=== PATIENT | male | born 1970 | race African-American/Black ===

== ENCOUNTER 2017-11-08 06:43 | Day surgery (SDC) | payer OTHER ==
[~2017-11-08 06:43] MED LIST: DEXAMETHASONE SOD PHOSPHATE 10 MG/ML 1 ML VIAL IV ONE; HEPARIN SODIUM,PORCINE 5,000 UNIT/ML 1 ML VIAL SQ ONE; LACTATED RINGERS 1,000 ML IV SCH; MIDAZOLAM 2 MG/2 ML VIAL IV PRN; MORPHINE SULFATE 4 MG/ML SYRINGE IV PRN; ONDANSETRON 4 MG/2 ML VIAL IVP ONE; Pre Op ABX Message 1 EACH MISC MISCELLANE ONE; SCOPOLAMINE 1.5MG/72HR PATCH TRANSDERM ONE
[2017-11-08 07:21] VITALS: TEMP 98.7
[2017-11-08 07:33] LABS: Glucose,Whole Blood 81 mg/dL (75-99)
[2017-11-08] MEDS ORDERED: LIDOCAINE 1% 20 ML VIAL (10MG/ML) FOR IV START INTRADERMA ONE (07:33)
[2017-11-08] MEDS ORDERED: BUPIVACAINE-EPI 0.5%-1:200,000 10 ML VIAL SQ ONE ×2 (08:06)
[2017-11-08] MEDS ORDERED: MIDAZOLAM 2 MG/2 ML VIAL ONE (08:11)
[2017-11-08] MEDS ORDERED: KETAMINE 10 MG/ML 20 ML VIAL ONE (08:11)
[2017-11-08] MEDS ORDERED: LIDOCAINE 1% INJ 10MG/ML (20 ML MDV) ONE (08:11)
[2017-11-08] MEDS ORDERED: fentaNYL (PF) 50 MCG/ML 2 ML AMP ONE (08:11)
[2017-11-08] MEDS ORDERED: PROPOFOL 10 MG/ML 20 ML VIAL IV ONE (08:11)
--- NOTE | 2017-11-08 08:15 | P.GSHP ---
History of Present Illness H&P Date: 11/08/17 Chief Complaint: Left shoulder lipoma Is a 47-year-old male who presents today for excision of left shoulder lipoma. Patient has developed a 5 cm mass over his left shoulder. Past Medical History Past Medical History: Diabetes Mellitus Additional Past Medical History / Comment(s): DIET CONTROLLED DIABETIC History of Any Multi-Drug Resistant Organisms: None Reported Past Surgical History: Orthopedic Surgery Additional Past Surgical History / Comment(s): left knee surgery, skin grafts Past Anesthesia/Blood Transfusion Reactions: No Reported Reaction Smoking Status: Current every day smoker - Past Family History Sister(s) Family Medical History: Cancer Additional Family Medical History / Comment(s): BREAST Medications and Allergies Home Medications Medication Instructions Recorded Confirmed Type Famotidine [Pepcid AC] 10 mg PO DAILY 10/30/17 11/08/17 History Allergies Allergy/AdvReac Type Severity Reaction Status Date / Time No Known Allergies Allergy Verified 11/08/17 07:12 Surgical - Exam Vital Signs Temp Pulse Resp BP Pulse Ox 98.7 F 68 18 124/84 98 11/08/17 07:19 11/08/17 07:19 11/08/17 07:19 11/08/17 07:19 11/08/17 07:19 - General well developed, no distress - Eyes PERRL - ENT normal pinna - Neck no masses - Respiratory normal expansion - Cardiovascular Rhythm: regular - Abdomen Abdomen: soft, non tender Assessment and Plan Assessment: Left shoulder lipoma. We'll perform excision.
[2017-11-08] MEDS ORDERED: SODIUM CHLORIDE 0.9% 50 ML with ceFAZolin 2,000 MG IV ONE ×2 (08:51)
[2017-11-08 10:30] VITALS: BP 114/76; PULSE 86; RESP 20
--- NOTE | 2017-11-08 10:47 | P.OP ---
Date of Procedure: 11/08/17 Preoperative Diagnosis: Left shoulder lipoma Postoperative Diagnosis: Left shoulder lipoma Anesthesia: MAC Surgeon: Hunter Ellis Estimated Blood Loss (ml): 5 Pathology: other Condition: stable Disposition: PACU Description of Procedure: The patient's placed on the operative table in supine position. He received IV sedation. His left shoulder was prepped and draped usual sterile fashion. Patient is shoulder lipoma measuring approximately 10 cm diameter on the anterior lateral aspect of the shoulder. The area was anesthetized 1% local Xylocaine. Then skin was incised and then using sharp dissection with the Metzenbaum scissors and electrocautery the lipoma was excised. The bone was used for hemostasis. The skin was closed interrupted 3-0 Monocryl suture. Dermabond dressings was applied. Patient was sent to recovery room stable condition.
== END 2017-11-08 10:31 | disposition home or self-care (01) ==
LOC: OR 06:43
PROVIDERS: ATTEND Surgery
DX: D17.20 Benign lipomatous neoplasm of skin and subcutaneous tissue of unspecified limb (principal); E11.9 Type 2 diabetes mellitus without complications; F17.200 Nicotine dependence, unspecified, uncomplicated; K21.9 Gastro-esophageal reflux disease without esophagitis; Z79.899 Other long term (current) drug therapy
CPT/HCPCS: 88304; 11406; J2250; J1644; J1100; J2405; J2001; J3010; J0690; J2704

== ENCOUNTER 2017-12-31 13:28 | Inpatient (IN) | payer OTHER ==
[2017-12-31] MEDS ORDERED: SODIUM CHLORIDE 0.9% 1,000 ML IV STA ×2 (13:55→15:40)
[2017-12-31] MEDS ORDERED: ONDANSETRON 4 MG/2 ML VIAL IVP STA (13:55)
[2017-12-31] MEDS ORDERED: MORPHINE SULFATE 4 MG/ML SYRINGE IVP STA (13:55)
[2017-12-31] MEDS ORDERED: KETOROLAC 30 MG/ML 1 ML VIAL IVP STA (14:02)
[2017-12-31 14:26] LABS: Basophils % (A) 0 %; Eosinophils # (A) 0.3 k/uL (0-0.7); Eosinophils % (A) 4 %; HCT 46.5 % (39.0-53.0); HGB 15.1 gm/dL (13.0-17.5); Lymphocytes # (A) 1.8 k/uL (1.0-4.8); Lymphocytes % (A) 23 %; MCH 27.7 pg (25.0-35.0); MCHC 32.4 g/dL (31.0-37.0); MCV 85.3 fL (80.0-100.0); Mean Platelet Volume 7.5; Monocytes # (A) 0.4 k/uL (0-1.0); Monocytes % (A) 6 %; Neutrophils # (A) 5.1 k/uL (1.3-7.7); Neutrophils % (A) 66 %; Platelet Count 205 k/uL (150-450); RBC 5.46 m/uL (4.30-5.90); RDW 15.1 % (11.5-15.5); WBC 7.8 k/uL (3.8-10.6)
--- NOTE | 2017-12-31 14:31 | ED ---
General Adult HPI - General Chief complaint: Abdominal Pain Stated complaint: abdominal pain Time Seen by Provider: 12/31/17 13:47 Source: patient Mode of arrival: ambulatory Limitations: no limitations - History of Present Illness Initial comments: Patient's a 47-year-old male who presents emergency room today with chief complaint of abdominal pain off and on over the last several months. He does admit that this past week and has become more severe and constant. States that he's had some symptoms of nausea vomiting last for 5 days. He does admit that is felt some pain now radiating to the right upper quadrant from the left side where it started over the past 2 days. Patient does admit to drinking alcohol and gives an example of the year. Patient states symptoms of time keeping down any food or liquids. He denies any other complaints currently. Patient denies any recent fever, chills, shortness of breath, chest pain, numbness or tingling , dysuria or hematuria, constipation or diarrhea, headaches or visual changes, or any other complaints. - Related Data Home Medications Medication Instructions Recorded Confirmed Ibuprofen [Motrin Ib] 800 mg PO TID PRN 12/31/17 12/31/17 Allergies Allergy/AdvReac Type Severity Reaction Status Date / Time No Known Allergies Allergy Verified 12/31/17 13:44 Review of Systems ROS Statement: Those systems with pertinent positive or pertinent negative responses have been documented in the HPI. ROS Other: All systems not noted in ROS Statement are negative. Past Medical History Past Medical History: Diabetes Mellitus Additional Past Medical History / Comment(s): DIET CONTROLLED DIABETIC History of Any Multi-Drug Resistant Organisms: None Reported Past Surgical History: Orthopedic Surgery Additional Past Surgical History / Comment(s): left knee surgery, skin grafts Past Anesthesia/Blood Transfusion Reactions: No Reported Reaction Past Psychological History: No Psychological Hx Reported Smoking Status: Current every day smoker Past Alcohol Use History: Heavy, Occasional Past Drug Use History: None Reported - Past Family History Sister(s) Family Medical History: Cancer Additional Family Medical History / Comment(s): BREAST General Exam - General Exam Comments Initial Comments: General: The patient is awake and alert, in no distress, and does not appear acutely ill. Eye: Pupils are equal, round and reactive to light, extra-ocular movements are intact. No nystagmus. There is normal conjunctiva bilaterally. No signs of icterus. Ears, nose, mouth and throat: There are moist mucous membranes and no oral lesions. Neck: The neck is supple, there is no tenderness or JVD. Cardiovascular: There is a regular rate and rhythm. No murmur, rub or gallop is appreciated. Respiratory: Lungs are clear to auscultation, respirations are non-labored, breath sounds are equal. No wheezes, stridor, rales, or rhonchi. Gastrointestinal: Abdomen soft on palpation. Does have tenderness minimal to the right upper quadrant and epigastric. Increased tenderness to the left upper quadrant. No rebound tenderness. No guarding. Mild left-sided CVA tenderness. Musculoskeletal: Normal ROM, no tenderness. Strength 5/5. Sensation intact. Pulses equal bilaterally 2+. Neurological: A&O x 3. CN II-XII intact, There are no obvious motor or sensory deficits. Coordination appears grossly intact. Speech is normal. Skin: Skin is warm and dry and no rashes or lesions are noted. Psychiatric: Cooperative, appropriate mood & affect, normal judgment. Limitations: no limitations Course Vital Signs 12/31/17 12/31/17 13:30 15:49 Temperature 98.1 F Pulse Rate 108 H 84 Respiratory 20 18 Rate Blood Pressure 145/67 126/63 O2 Sat by Pulse 99 98 Oximetry Medical Decision Making - Medical Decision Making Patient lives been reviewed. Patient still experiencing some symptoms of nausea vomiting in the emergency room. Ultrasound has been reviewed is unremarkable at this time but limited due to pain. Patient has had diarrhea earlier today. X-ray reviewed. Patient will be admitted for intractable nausea vomiting. - Lab Data Result diagrams: 12/31/17 13:49 12/31/17 13:49 Lab Results 12/31/17 12/31/17 Range/Units 13:49 13:49 WBC 7.8 (3.8-10.6) k/uL RBC 5.46 (4.30-5.90) m/uL Hgb 15.1 (13.0-17.5) gm/dL Hct 46.5 (39.0-53.0) % MCV 85.3 (80.0-100.0) fL MCH 27.7 (25.0-35.0) pg MCHC 32.4 (31.0-37.0) g/dL RDW 15.1 (11.5-15.5) % Plt Count 205 (150-450) k/uL Neutrophils % 66 % Lymphocytes % 23 % Monocytes % 6 % Eosinophils % 4 % Basophils % 0 % Neutrophils # 5.1 (1.3-7.7) k/uL Lymphocytes # 1.8 (1.0-4.8) k/uL Monocytes # 0.4 (0-1.0) k/uL Eosinophils # 0.3 (0-0.7) k/uL Basophils # 0.0 (0-0.2) k/uL Sodium 139 (137-145) mmol/L Potassium 3.6 (3.5-5.1) mmol/L Chloride 111 H (98-107) mmol/L Carbon Dioxide 17 L (22-30) mmol/L Anion Gap 11 mmol/L BUN 10 (9-20) mg/dL Creatinine 1.31 H (0.66-1.25) mg/dL Est GFR (CKD-EPI)AfAm 75 (>60 ml/min/1.73 sqM) Est GFR (CKD-EPI)NonAf 65 (>60 ml/min/1.73 sqM) Glucose 155 H (74-99) mg/dL Calcium 9.7 (8.4-10.2) mg/dL Total Bilirubin 0.7 (0.2-1.3) mg/dL AST 144 H (17-59) U/L ALT 111 H (21-72) U/L Alkaline Phosphatase 96 (38-126) U/L Total Protein 7.5 (6.3-8.2) g/dL Albumin 3.9 (3.5-5.0) g/dL Amylase 45 (30-110) U/L Lipase 90 (23-300) U/L Disposition Clinical Impression: Intractable nausea and vomiting Disposition: ADMITTED IP TO THIS [facility] Condition: Good Referrals: None,Stated [Primary Care Provider] - 1-2 days Time of Disposition: 15:54
[2017-12-31 14:39] LABS: Albumin 3.9 g/dL (3.5-5.0); Calcium 9.7 mg/dL (8.4-10.2); Potassium 3.6 mmol/L (3.5-5.1); Total Bilirubin 0.7 mg/dL (0.2-1.3); Total Protein 7.5 g/dL (6.3-8.2)
--- NOTE | 2017-12-31 15:00 | US ---
EXAMINATION TYPE: US abdomen limited DATE OF EXAM: 12/31/2017 COMPARISON: NONE CLINICAL HISTORY: 47-year-old male Pain. Technique: Multiple sonographic images of the right upper quadrant are obtained. FINDINGS: FORENSIC ENGINEER NOTES: Extensive midline bowel gas. Technically difficult study. Liver Length: 15.6 cm Gallbladder Wall: 0.2 cm CBD: 0.2 cm Right Kidney: 11.6 x 4.9 x5.2 cm Pancreas: Obscured by bowel gas Liver: Limited visualization. The visualized portions show no gross abnormality. Gallbladder: No abnormal gallbladder distention, wall thickening, pericholecystic fluid, or shadowin g calculi. Evidence for sonographic Edmond's sign: no CBD: wnl Right Kidney: No hydronephrosis; inferior pole obscured by bowel gas. IMPRESSION: Prominent bowel gas causing technical limitations. No specific abnormality identified of the right up per quadrant.
--- NOTE | 2017-12-31 15:29 | XR ---
EXAMINATION TYPE: XR KUB DATE OF EXAM: 12/31/2017 COMPARISON: NONE HISTORY: Pain, nausea and vomiting TECHNIQUE: One view abdominal series FINDINGS: The osseous structures are intact. The bowel gas pattern is nonspecific. There are air-fluid levels on the upright view. Air is seen distally within the colon. Arthropathy of the hips noted. Lung bases are clear. IMPRESSION: 1. Nonspecific abdomen. Air-fluid levels are seen. Finding could be on the basis of an enteritis or ileus. Correlate clinically. Partial obstruction felt less likely.
[2017-12-31] MEDS ORDERED: NALOXONE 0.4 MG/ML 1 ML VIAL IV PRN (15:54)
[2017-12-31 17:22] LABS: Glucose,Whole Blood 85 mg/dL (75-99)
[2017-12-31] MEDS ORDERED: LORazepam 2 MG/ML INJ IV PRN ×3 (17:51)
[2017-12-31] MEDS: MORPHINE SULFATE 4 MG/ML SYRINGE IV PRN ×2 (17:56→21:53)
[2017-12-31] MEDS ORDERED: THIAMINE 100 MG TAB PO SCH (19:00)
[2017-12-31 19:15] VITALS: BMI 29.0
[2017-12-31] MEDS: PANTOPRAZOLE 40 MG/10 ML VIAL IVP SCH (20:17)
[2017-12-31] MEDS: NICOTINE 21MG/24HR PATCH TRANSDERM SCH (20:19)
[2017-12-31 21:02] LABS: Glucose,Whole Blood 118 mg/dL (75-99)
[2017-12-31] MEDS: INSULIN ASPART 100 UNIT/ML 1 ML 10 ML VIAL SQ SCH (21:38)
[2018-01-01 01:25] LABS: Hemoglobin A1C 5.6 % (4.0-6.0)
[2018-01-01] MEDS: MORPHINE SULFATE 4 MG/ML SYRINGE IV PRN ×4 (02:36→14:38)
--- NOTE | 2018-01-01 04:03 | HP ---
HISTORY AND PHYSICAL DATE OF SERVICE: 12/31/2017 CHIEF COMPLAINT: Abdominal pain, vomiting. HISTORY OF PRESENT ILLNESS: This is a 47-year-old gentleman with a past medical history of diabetes, this is diet controlled, DJD, history of nicotine dependence, history of heavy alcohol intake and not being followed by any primary physician in the outpatient setting presented to [facility] with complaints of abdominal discomfort and as well as vomiting. The pain is on and off for the last several months. The patient had continuous for the last 5 days. Patient unable to keep anything down. There is no history of fever, rigors. No headache, loss of consciousness, seizures at this time. PAST MEDICAL HISTORY: History of diabetes mellitus type 2, diet controlled, history of DJD, history of nicotine dependence, heavy alcohol. MEDICATIONS: Motrin 800 t.i.d. p.r.n. ALLERGIES: None. FAMILY HISTORY: Of breast cancer in the family. SOCIAL HISTORY: History of smoking and alcohol. REVIEW OF SYSTEMS: ENT: No diminished hearing or vision. CARDIOVASCULAR: No angina or palpitations. Respiratory: No cough or hemoptysis. GI no nausea. no dysuria. Nervous system: No numbness, weakness. Allergy/Immunology: No asthma or hayfever. Musculoskeletal: As mentioned earlier. Hematology/Oncology: No history of anemia. Endocrine: History of diabetes. Constitutional: As mentioned earlier. Dermatology: Negative. Rheumatology: Negative. Psychiatric: As mentioned earlier. PHYSICAL EXAM: Patient is alert, oriented x3. Pulse 73, blood pressure 120/77, respiration 18, temperature 99.1, pulse ox 98% on room air. HEENT conjunctivae normal. Oral mucosa moist. Neck is no jugular venous distention. No lymph node enlargement. Cardiovascular system: S1, S2. No S3, no S4. Respiratory: Breath sounds diminished in the bases. No rhonchi. No crackles. ABDOMEN: Soft. Mild diffuse discomfort and tenderness in the upper epigastrium. Otherwise no mass palpable. No ascites. Legs: No edema and no swelling. Nervous system: Higher functions as mentioned earlier. Moves all 4 limbs. No focal motor or sensory deficits. Lymphatics: No lymph nodes palpable in the neck, axillae or groin. Skin no ulcer, rashes or bleeding. LABS: CBC within normal limits. Chloride is 111, creatinine is 1.31, glucose 155, AST is 144, ALT is 111. ASSESSMENT: 1. Abdominal pain rule out possible acute gastritis, possibly alcoholic gastritis. 2. History of significant EtOH. 3. Alcoholic hepatitis. 4. Increased creatinine with mild acute renal failure possibly prerenal renal failure. 5. History of diet-controlled diabetes mellitus. 6. History of degenerative joint disease. 7. History of nicotine dependence. RECOMMENDATIONS AND DISCUSSION: In this 47-year-old gentleman who presented with multiple complex medical issues, we will monitor the patient closely, continue the current medications, management and symptomatic treatment. Otherwise at this time I will recommend proton pump inhibitors. Symptomatic treatment. CIWA protocol. Supplement vitamins. Start on clear liquids. Alcohol cessation recommendation has been given. Guarded prognosis because of the multiple complex medical issues and we will repeat labs tomorrow and further recommendations to follow. Also recommend the patient to follow up with a primary physician closely after discharge. Discussed with the patient who understands and agrees. MMKATHARINAL / ARVINDN: [id number] /
[2018-01-01 07:33] LABS: Glucose,Whole Blood 104 mg/dL (75-99)
[2018-01-01] MEDS: INSULIN ASPART 100 UNIT/ML 1 ML 10 ML VIAL SQ SCH ×4 (07:52→22:18)
[2018-01-01 09:38] LABS: Basophils % (A) 0 %; Eosinophils # (A) 0.3 k/uL (0-0.7); Eosinophils % (A) 5 %; HCT 41.3 % (39.0-53.0); HGB 12.9 gm/dL (13.0-17.5); Hypochromasia Slight; Lymphocytes # (A) 1.8 k/uL (1.0-4.8); Lymphocytes % (A) 31 %; MCH 27.5 pg (25.0-35.0); MCHC 31.3 g/dL (31.0-37.0); MCV 87.8 fL (80.0-100.0); Mean Platelet Volume 7.8; Monocytes # (A) 0.4 k/uL (0-1.0); Monocytes % (A) 7 %; Neutrophils # (A) 3.1 k/uL (1.3-7.7); Neutrophils % (A) 54 %; Platelet Count 170 k/uL (150-450); RDW 15.1 % (11.5-15.5); WBC 5.7 k/uL (3.8-10.6)
[2018-01-01] MEDS: NICOTINE 21MG/24HR PATCH TRANSDERM SCH (10:20)
[2018-01-01] MEDS: PANTOPRAZOLE 40 MG/10 ML VIAL IVP SCH ×2 (10:21→20:16)
[2018-01-01] MEDS: FOLIC ACID 1 MG TAB PO SCH (10:24)
[2018-01-01] MEDS: THIAMINE 100 MG TAB PO SCH (10:24)
[2018-01-01] MEDS: MULTIVITAMINS, THERA 1 EACH TAB PO SCH (10:24)
[2018-01-01 11:21] LABS: ALT 84 U/L (21-72); AST 86 U/L (17-59); Alkaline Phosphatase 60 U/L (38-126); Anion Gap 6 mmol/L; Blood Urea Nitrogen 11 mg/dL (9-20); Calcium 8.4 mg/dL (8.4-10.2); Carbon Dioxide 20 mmol/L (22-30); Chloride 113 mmol/L (98-107); Glucose 84 mg/dL (74-99); Potassium 4.2 mmol/L (3.5-5.1); Sodium 139 mmol/L (137-145); Total Bilirubin 0.5 mg/dL (0.2-1.3); Total Protein 5.9 g/dL (6.3-8.2)
[2018-01-01 11:59] LABS: Glucose,Whole Blood 91 mg/dL (75-99)
[2018-01-01] MEDS ORDERED: IBUPROFEN 600 MG TAB PO PRN (16:22)
[2018-01-01 17:20] LABS: Glucose,Whole Blood 109 mg/dL (75-99)
--- NOTE | 2018-01-01 17:31 | PN ---
PROGRESS NOTE DATE OF SERVICE: 01/01/2018. HISTORY: This 48-year-old gentleman who was admitted with abdominal pain with possible acute gastritis, continued to complain of abdominal pain. No fever, no cough. EXAM: Alert, oriented x3. Pulse 71, blood pressure 100/60, respirations 16, temperature 98.2, pulse ox 100% on room. HEENT: Conjunctivae normal. CARDIOVASCULAR: S1 and S2 muffled. RESPIRATORY: Lung sounds decreased at the bases. No rhonchi. ABDOMEN: Soft, nontender. No mass. LEGS: No edema. LAB STUDIES: AST 86, ALT is 84. ASSESSMENT: 1. Acute abdominal pain, possible acute gastritis, possibly alcoholic gastritis. 2. History of significant EtOH. 3. Alcoholic hepatitis. 4. Increased creatinine with mild acute renal failure, possibly prerenal renal failure, improved. 5. History of back pain, diabetes type 2. 6. History of degenerative joint disease. 7. History of nicotine dependence. RECOMMENDATIONS: Continue current management and treatment. Otherwise advanced diet. Continue to monitor. Further recommendations to follow. MMODL / IJN: [id number] /
[2018-01-01] MEDS: HYDROcodone/APAP 5-325MG 1 EACH TAB PO PRN (20:06)
[2018-01-01 22:00] LABS: Glucose,Whole Blood 114 mg/dL (75-99)
[2018-01-02] MEDS: HYDROcodone/APAP 5-325MG 1 EACH TAB PO PRN ×3 (02:43→15:17)
[2018-01-02 07:09] LABS: Glucose,Whole Blood 97 mg/dL (75-99)
[2018-01-02] MEDS: INSULIN ASPART 100 UNIT/ML 1 ML 10 ML VIAL SQ SCH ×4 (07:12→22:05)
[2018-01-02] MEDS: NICOTINE 21MG/24HR PATCH TRANSDERM SCH (08:20)
[2018-01-02] MEDS: PANTOPRAZOLE 40 MG/10 ML VIAL IVP SCH ×2 (08:20→20:09)
[2018-01-02] MEDS: FOLIC ACID 1 MG TAB PO SCH (08:21)
[2018-01-02] MEDS: MULTIVITAMINS, THERA 1 EACH TAB PO SCH (08:21)
[2018-01-02] MEDS: THIAMINE 100 MG TAB PO SCH (08:22)
[2018-01-02] MEDS: ONDANSETRON 4 MG/2 ML VIAL IVP PRN ×2 (08:30→16:46)
[2018-01-02 09:27] LABS: Basophils % (A) 0 %; Eosinophils # (A) 0.2 k/uL (0-0.7); Eosinophils % (A) 4 %; HCT 41.6 % (39.0-53.0); HGB 13.6 gm/dL (13.0-17.5); Lymphocytes # (A) 1.9 k/uL (1.0-4.8); Lymphocytes % (A) 32 %; MCH 28.4 pg (25.0-35.0); MCHC 32.8 g/dL (31.0-37.0); MCV 86.7 fL (80.0-100.0); Mean Platelet Volume 7.4; Monocytes # (A) 0.4 k/uL (0-1.0); Monocytes % (A) 6 %; Neutrophils # (A) 3.3 k/uL (1.3-7.7); Neutrophils % (A) 55 %; Platelet Count 170 k/uL (150-450); RDW 15.2 % (11.5-15.5)
[2018-01-02 12:03] LABS: Anion Gap 4 mmol/L; Blood Urea Nitrogen 13 mg/dL (9-20); Carbon Dioxide 25 mmol/L (22-30); Chloride 112 mmol/L (98-107); Glucose 87 mg/dL (74-99); Potassium 4.1 mmol/L (3.5-5.1); Sodium 141 mmol/L (137-145)
[2018-01-02] MEDS: MORPHINE SULFATE 4 MG/ML SYRINGE IVP PRN ×3 (12:18→22:01)
[2018-01-02 12:20] LABS: Glucose,Whole Blood 99 mg/dL (75-99)
[2018-01-02] MEDS: SODIUM CHLORIDE 0.9% 1,000 ML IV SCH ×2 (12:33→20:12)
--- NOTE | 2018-01-02 16:38 | PN ---
PROGRESS NOTE DATE OF SERVICE: 01/02/2017. This 47-year-old gentleman who was admitted with abdominal pain with possible gastritis and other medical issues, has been closely monitored. Patient complaining of vomiting. No chest pain. No palpitations. No fever. EXAM: Alert and oriented x3. Pulse 58, blood pressure 112/65, respiration 18, temperature 97.7, pulse ox 98% room air. HEENT: Conjunctivae normal. NECK: No jugular venous distention. CARDIOVASCULAR: S1, S2. RESPIRATORY: Breath sounds diminished in the bases. No rhonchi, no crackles. ABDOMEN: Soft. Mild diffuse discomfort on epigastrium. No mass palpable. LEGS: No edema. NERVOUS SYSTEM: No focal deficit. LABS: CBC within normal. ASSESSMENT: 1. Acute abdominal pain with possible acute gastritis, possibly alcoholic gastritis. 2. History of significant EtOH. 3. Alcoholic hepatitis. 4. History of increased creatinine with mild acute renal failure, possibly prerenal renal failure. 5. History of back pain. 6. Diabetes mellitus type 2. 7. History of degenerative joint disease. 8. History of nicotine dependence. RECOMMENDATIONS AND DISCUSSION: I recommend to continue current medications, continue symptomatic treatment. I would also recommend a gastroenterology consultation for possibly EGD. Guarded prognosis because of multiple complex medical issues. Further recommendations to follow. MMODL / IJN: [id number] /
[2018-01-02 17:52] LABS: Glucose,Whole Blood 86 mg/dL (75-99)
[2018-01-02 21:25] LABS: Glucose,Whole Blood 88 mg/dL (75-99)
[2018-01-03] MEDS: HYDROcodone/APAP 5-325MG 1 EACH TAB PO PRN ×2 (00:46→09:12)
[2018-01-03] MEDS: MORPHINE SULFATE 4 MG/ML SYRINGE IVP PRN ×2 (04:59→12:21)
[2018-01-03 07:19] LABS: Glucose,Whole Blood 89 mg/dL (75-99)
[2018-01-03 07:26] VITALS: RESP 16
[2018-01-03] MEDS: INSULIN ASPART 100 UNIT/ML 1 ML 10 ML VIAL SQ SCH ×2 (07:31→12:58)
[2018-01-03] MEDS: PANTOPRAZOLE 40 MG/10 ML VIAL IVP SCH (07:50)
[2018-01-03] MEDS: NICOTINE 21MG/24HR PATCH TRANSDERM SCH (07:50)
[2018-01-03] MEDS: ONDANSETRON 4 MG/2 ML VIAL IVP PRN (07:50)
[2018-01-03] MEDS: SODIUM CHLORIDE 0.9% 1,000 ML IV SCH (07:56)
[2018-01-03] MEDS ORDERED: PROPOFOL 10 MG/ML 20 ML VIAL IV ONE (08:01)
[2018-01-03] MEDS ORDERED: LIDOCAINE 1% INJ 10MG/ML (20 ML MDV) ONE (08:01)
[2018-01-03] MEDS ORDERED: SODIUM CHLORIDE 0.9% 1,000 ML IV ONE (08:19)
--- NOTE | 2018-01-03 08:19 | P.PCN ---
Date of Procedure: 01/03/18 Procedure(s) Performed: BRIEF HISTORY: Patient is a 47-year-old, pleasant, -[place] male, scheduled for an upper endoscopy as a part of evaluation of chronic abdominal pain of more than 10 years duration associated with intermittent nausea vomiting. He has long standing history of diabetes colitis diagnosed 8 years ago. He describes appeared mostly in the upper abdominal area with intermittent episodes of nausea vomiting. No prior history of peptic ulcer disease.. PROCEDURE PERFORMED: Esophagogastroduodenoscopy with biopsy. PREOPERATIVE DIAGNOSIS: Chronic abdominal pain/intermittent nausea vomiting. IV sedation per anesthesia. PROCEDURE: After informed consent was obtained, the patient was brought into the endoscopy unit. IV sedation was administered by Anesthesia under continuous monitoring. Initially the Olympus GIF-140 video endoscope was inserted into the mouth. Esophagus intubated without any difficulty. It was gradually advanced into the stomach and duodenum and carefully examined. The bulb and the second part of the duodenum appeared normal. The scope at this time was withdrawn to the stomach, adequately insufflated with air, and upon careful examination, mucosa of the antrum, scattered erosions were identified and biopsies were done from this area. The body, cardia and the fundus appeared normal. The scope was then withdrawn into the esophagus. The GE junction was located at 39 cm from the incisors. Small sliding Hiatal hernia noted. The esophagus appeared normal. There were no erosions or ulcerations seen and the patient tolerated the procedure well. IMPRESSION: 1. Antral erosive gastritis. 2. Small sliding Hiatal hernia. RECOMMENDATIONS: The findings of this examination were discussed with the patient. He was advised to follow with the biopsy results. In the meantime he' ll continue with the Protonix 40 mg daily and Diet will be advanced as tolerated.
[2018-01-03 08:58] LABS: Basophils % (A) 0 %; Eosinophils # (A) 0.2 k/uL (0-0.7); Eosinophils % (A) 4 %; HCT 42.6 % (39.0-53.0); HGB 13.8 gm/dL (13.0-17.5); Lymphocytes # (A) 1.6 k/uL (1.0-4.8); Lymphocytes % (A) 29 %; MCH 28.3 pg (25.0-35.0); MCHC 32.4 g/dL (31.0-37.0); MCV 87.5 fL (80.0-100.0); Mean Platelet Volume 7.3; Monocytes # (A) 0.4 k/uL (0-1.0); Monocytes % (A) 6 %; Neutrophils # (A) 3.3 k/uL (1.3-7.7); Neutrophils % (A) 58 %; Platelet Count 169 k/uL (150-450); RBC 4.87 m/uL (4.30-5.90); RDW 15.2 % (11.5-15.5); WBC 5.7 k/uL (3.8-10.6)
--- NOTE | 2018-01-03 09:37 | P.CONS ---
History of Present Illness - Reason for Consult Consult date: 01/03/18 nausea vomiting Requesting physician: Loreto Arreola - History of Present Illness 47-year-old male from [place] with a history of diabetes mellitus presently not on insulin or oral hypoglycemics, nicotine cigarette dependency, chronic EtOH consumption 4-5 beers daily heroin abuse as recent as 2-3 months ago presented with acute abdominal pain nausea vomiting. Pain radiating from left upper quadrant to the right upper quadrant. Patient reports chronic abdominal pain for 15 years duration. Denies hematemesis hematochezia melena fever chills or weight loss. No excessive usage of NSAIDs or aspirin. Admission white count 7.8. Hemoglobin 15.1. Platelet 205. BUN 10. Creatinine 1.1. Total bilirubin 0.7. AST 144. ALT 111. Alkaline phosphatase 96. Lipase 90. Abdominal ultrasound gallbladder wall 0.2 cm. CBD 0.2 cm. No evidence of gallbladder calculi. KUB nonspecific abdomen. Home medications include Protonix 40 mg twice daily. No history of peptic ulcer disease. EGD about 5 years ago in [place] and was told he had an infection placed on antibiotics. Colonoscopy performed in [place] about 5 years ago for evaluation of abdominal pain possible IBD with unremarkable findings. Review of Systems Constitutional: Denies fever, chills, sweats, weight gain, or loss. HEENT: Negative for migraines, blurred vision or loss, earaches, drainage, tinnitus, oral mucosal lesions, dysphagia, or odynophagia. Cardiac: Negative for chest pain, arrhythmias, or palpitation. Respiratory: Nicotine cigarette dependency. Negative for shortness of breath, hemoptysis, cough, or sputum production. Gastrointestinal: See HPI for pertinent findings. Genitourinary: Negative for hematuria, urgency, frequency, polyuria, dysuria, or penile discharge. Musculoskeletal: Negative for muscle aches, swelling, arthritis, and arthralgias. Neurologic: Negative for stroke or TIA. Endocrine: Diabetes mellitus. Negative for thyroid problems. Skin: Negative for rash or itching. Psychiatric: Negative history for depression and anxiety Past Medical History Past Medical History: Diabetes Mellitus Additional Past Medical History / Comment(s): DIET CONTROLLED DIABETIC History of Any Multi-Drug Resistant Organisms: None Reported Past Surgical History: Orthopedic Surgery Additional Past Surgical History / Comment(s): left knee surgery, skin grafts Past Anesthesia/Blood Transfusion Reactions: No Reported Reaction Past Psychological History: No Psychological Hx Reported Smoking Status: Current every day smoker Past Alcohol Use History: Daily, Heavy, Occasional Additional Past Alcohol Use History / Comment(s): pt. states, "drink 4-5 tall beers a day" last drink 12/30/17 Past Drug Use History: None Reported - Past Family History Sister(s) Family Medical History: Cancer Additional Family Medical History / Comment(s): BREAST Medications and Allergies Home Medications Medication Instructions Recorded Confirmed Type Folic Acid 1 mg PO DAILY@1200 #30 tab 01/01/18 Rx LORazepam [Ativan] 1 mg PO TID PRN #20 tab 01/01/18 Rx Multivitamins, Thera [Multivitamin 1 each PO DAILY@1200 #30 tab 01/01/18 Rx (formulary)] Nicotine 21Mg/24Hr Patch [Habitrol] 1 patch TRANSDERM DAILY #30 patch 01/01/18 Rx Pantoprazole Sodium [Protonix] 40 mg PO BID #60 tablet. 01/01/18 Rx Thiamine [Vitamin B-1] 100 mg PO DAILY@1200 #30 tab 01/01/18 Rx Allergies Allergy/AdvReac Type Severity Reaction Status Date / Time No Known Allergies Allergy Verified 12/31/17 13:44 Physical Exam Vitals: Vital Signs Temp Pulse Resp BP Pulse Ox 01/02/18 23:00 99.3 F 63 18 120/71 98 01/02/18 15:00 98.2 F 66 16 120/82 100 01/02/18 14:02 58 L 18 01/02/18 09:07 18 Intake and Output 01/02/18 01/03/18 01/03/18 22:59 06:59 14:59 Output Total 200 400 Balance -200 -400 Output: Urine 200 400 Other: # Voids 2 General appearance: The patient is alert, oriented, in no acute distress. HET: Head is normocephalic and atraumatic. Pupils are equal and reactive. Oropharynx is clear without lesions. Neck: Supple without lymphadenopathy. Trachea midline. Heart: S1 S2. Regular rate and rhythm. Lungs: No crackles or wheezes are heard. Abdomen: Soft, nontender, nondistended with bowel sounds. No peritoneal signs. No palpable organomegaly or masses. Extremities: Normal skin color and turgor. No cyanosis, rash, ulceration, clubbing, or edema. Radial and pedal pulses are 2/4 bilaterally. Neurological: No focal deficits. Strength and sensation are grossly intact. Results CBC & Chem 7: 01/03/18 08:30 01/02/18 08:50 Labs: Abnormal Lab Results - Last 24 Hours (Table) 01/02/18 Range/Units 08:50 Chloride 112 H (98-107) mmol/L Abdominal x-ray: report reviewed (Dr. Bello) US - abdomen: report reviewed (Dr. Bello) Assessment and Plan (1) Abdominal pain Narrative/Plan: 47-year-old male admitted with acute bilateral upper abdominal pain with history of underlying chronic abdominal pain for 15 years duration with intractable nausea vomiting with a history of daily alcohol intake and diabetes mellitus. Possible gastroparesis possible alcoholic gastritis esophagitis possible peptic ulcer disease. Current Visit: Yes Status: Acute Code(s): R10.9 - UNSPECIFIED ABDOMINAL PAIN SNOMED Code(s): 34801262 (2) Diabetes mellitus Current Visit: Yes Status: Acute Code(s): E11.9 - TYPE 2 DIABETES MELLITUS WITHOUT COMPLICATIONS SNOMED Code(s): 64727127 (3) ETOHism Current Visit: Yes Status: Acute Code(s): F10.20 - ALCOHOL DEPENDENCE, UNCOMPLICATED SNOMED Code(s): 9111702 (4) Alcoholic hepatitis Current Visit: Yes Status: Acute Code(s): K70.10 - ALCOHOLIC HEPATITIS WITHOUT ASCITES SNOMED Code(s): 235360315 (5) Heroin abuse Current Visit: Yes Status: Acute Code(s): F11.10 - OPIOID ABUSE, UNCOMPLICATED SNOMED Code(s): 6145370 (6) Chronic abdominal pain Current Visit: Yes Status: Chronic Code(s): R10.9 - UNSPECIFIED ABDOMINAL PAIN; G89.29 - OTHER CHRONIC PAIN SNOMED Code(s): 399275831 Plan: 1. Continue with PPI therapy. We'll proceed with EGD evaluation. 2. Supportive measures. Alcohol abstinence advised. 3. Hepatitis screen. The fiber worker has discussed the risks, benefits and alternative therapies for the above-mentioned procedure and for both sedation/analgesia as well as necessary blood product administration, if indicated, as they pertain to this patient. The patient has indicated understanding and acceptance of the risks and procedures discussed. Thank you for this kind referral and the opportunity to participate in the care of your patient. This consultation was discussed with Dr. Bello. The impression and plan of care have been directed as dictated.
[2018-01-03 12:02] LABS: Glucose,Whole Blood 91 mg/dL (75-99)
[2018-01-03] MEDS: FOLIC ACID 1 MG TAB PO SCH (12:24)
[2018-01-03] MEDS: THIAMINE 100 MG TAB PO SCH (12:25)
[2018-01-03] MEDS: MULTIVITAMINS, THERA 1 EACH TAB PO SCH (12:25)
[2018-01-03 14:27] LABS: Appearance,Urine Clear (Clear); Bilirubin,Urine Negative (Negative); Blood,Urine Negative (Negative); Color,Urine Yellow; Glucose,Urine (UA) Negative (Negative); Ketones,Urine Negative (Negative); Leukocyte Esterase,Urine Negative (Negative); Nitrite,Urine Negative (Negative); Protein,Urine Negative (Negative); Specific Gravity,Urine 1.015 (1.001-1.035); Urobilinogen,Urine <2.0 mg/dL (<2.0)
[2018-01-03 15:20] VITALS: BP 147/78; PULSE 75; TEMP 98.8
[2018-01-03 19:36] LABS: Hepatitis B Core IgM Non-Reactive (Non-Reactive)
[2018-01-03 19:37] LABS: Hepatitis A Antibody IgM Non-Reactive (Non-Reactive)
== END 2018-01-03 16:35 | disposition home or self-care (01) | DRG 392 ==
LOC: EC 13:28 → 4MS4W 16:18
PROVIDERS: ADMIT Hospitalist; ATTEND Hospitalist
PROC: 0DB68ZX Excision of Stomach, Via Natural or Artificial Opening Endoscopic, Diagnostic (ICD-10-PCS; principal; 2017-12-31)
DX: K29.20 Alcoholic gastritis without bleeding (principal); N17.9 Acute kidney failure, unspecified; K70.10 Alcoholic hepatitis without ascites; E11.9 Type 2 diabetes mellitus without complications; F10.20 Alcohol dependence, uncomplicated; K44.9 Diaphragmatic hernia without obstruction or gangrene; F11.11 Opioid abuse, in remission; F17.200 Nicotine dependence, unspecified, uncomplicated; G89.29 Other chronic pain; M19.90 Unspecified osteoarthritis, unspecified site; Z80.3 Family history of malignant neoplasm of breast; M54.9 Dorsalgia, unspecified
CPT/HCPCS: 36415; 43239; 74018; 76705; 80048; 80053; 80074; 81003; 82150; 83036; 83690; 85025; 88305; 88342; 96361; 96374; 96375; 99285

== ENCOUNTER 2018-01-24 15:42 | Emergency (ER) | payer OTHER ==
[2018-01-24 15:47] VITALS: BP 184/105; PULSE 121; RESP 18; TEMP 98.1
[2018-01-24 16:46] LABS: Appearance,Urine Clear (Clear); Bilirubin,Urine Negative (Negative); Blood,Urine Moderate (Negative); Color,Urine Yellow; Glucose,Urine (UA) Negative (Negative); Hyaline Casts,Urine 9 /lpf (0-2); Ketones,Urine Negative (Negative); Leukocyte Esterase,Urine Negative (Negative); Mucus,Urine Occasional /hpf; Nitrite,Urine Negative (Negative); Protein,Urine 1+ (Negative); RBC,Urine 1 /hpf (0-5); Specific Gravity,Urine 1.016 (1.001-1.035); Urobilinogen,Urine <2.0 mg/dL (<2.0); WBC,Urine 2 /hpf (0-5)
--- NOTE | 2018-01-24 17:12 | US ---
EXAMINATION TYPE: US scrotum with doppler. Grayscale and color Doppler Duplex imaging performed of t he scrotum. DATE OF EXAM: 01/24/2018 COMPARISON: NONE CLINICAL HISTORY: Bleeding from penis . EXAM MEASUREMENTS: TESTICLES: Right Testicle: 5.2 x 1.8 x 2.9 cm Left Testicle: 4.7 x 1.6 x 2.5 cm EPIDIDYMIS HEAD: Right Epididymis: 1.0 cm Left Epididymis: 0.7 cm Doppler performed to assess for testicular vascularity; good bilateral color flow and waveforms are s een. There is no evidence of testicular torsion. Presence of hydroceles: Small amount of fluid visualized on right Presence of varicoceles: No Left testicle appears heterogeneous compared. IMPRESSION: No evidence of testicular torsion or mass. Left testicle is slightly smaller than the rig ht without a discrete mass. Small right-sided hydrocele.
--- NOTE | 2018-01-24 17:16 | ED ---
General Adult HPI - General Chief complaint: Urogenital Stated complaint: Urogential Time Seen by Provider: 01/24/18 15:57 Source: patient, RN notes reviewed, old records reviewed Mode of arrival: ambulatory Limitations: no limitations - History of Present Illness Initial comments: This is a 47-year-old male the ER for evaluation of bleeding from penis. Patient has no history of similar issues. Does have mild trauma including night. Patient does admit to doing crack cocaine prior to ER arrival, and is sitting very anxious regarding blood, patient otherwise has no complaints. No pain in his abdomen. No prior history of similar complaint. Patient is uncircumcised - Related Data Home Medications Medication Instructions Recorded Confirmed Ibuprofen [Motrin] 800 mg PO TID PRN 01/24/18 01/24/18 Allergies Allergy/AdvReac Type Severity Reaction Status Date / Time No Known Allergies Allergy Verified 01/24/18 15:56 Review of Systems ROS Statement: Those systems with pertinent positive or pertinent negative responses have been documented in the HPI. ROS Other: All systems not noted in ROS Statement are negative. Past Medical History Past Medical History: Diabetes Mellitus Additional Past Medical History / Comment(s): DIET CONTROLLED DIABETIC, abdominal hernia History of Any Multi-Drug Resistant Organisms: None Reported Past Surgical History: Orthopedic Surgery Additional Past Surgical History / Comment(s): left knee surgery, skin grafts Past Anesthesia/Blood Transfusion Reactions: No Reported Reaction Past Psychological History: No Psychological Hx Reported Smoking Status: Current every day smoker Past Alcohol Use History: Daily Past Drug Use History: Cocaine - Past Family History Sister(s) Family Medical History: Cancer Additional Family Medical History / Comment(s): BREAST General Exam Limitations: no limitations General appearance: alert, in no apparent distress Head exam: Present: atraumatic, normocephalic, normal inspection Eye exam: Present: normal appearance, PERRL, EOMI. Absent: scleral icterus, conjunctival injection, periorbital swelling ENT exam: Present: normal exam, mucous membranes moist Neck exam: Present: normal inspection. Absent: tenderness, meningismus, lymphadenopathy Respiratory exam: Present: normal lung sounds bilaterally. Absent: respiratory distress, wheezes, rales, rhonchi, stridor Cardiovascular Exam: Present: regular rate, normal rhythm, normal heart sounds. Absent: systolic murmur, diastolic murmur, rubs, gallop, clicks GI/Abdominal exam: Present: soft, normal bowel sounds. Absent: distended, tenderness, guarding, rebound, rigid exam: Present: normal inspection. Absent: testicular tenderness, urethral discharge, scrotal swelling, vertical testicular lie, circumcision External exam: Present: normal external exam. Absent: erythema, swelling Extremities exam: Present: normal inspection, full ROM, normal capillary refill. Absent: tenderness, pedal edema, joint swelling, calf tenderness Back exam: Present: normal inspection Neurological exam: Present: alert, oriented X3, CN II-XII intact Psychiatric exam: Present: normal affect, normal mood Skin exam: Present: warm, dry, intact, normal color. Absent: rash Course Vital Signs 01/24/18 15:43 Temperature 98.1 F Pulse Rate 121 H Respiratory 18 Rate Blood Pressure 184/105 O2 Sat by Pulse 99 Oximetry - Reevaluation(s) Reevaluation #1: 01/24/18 17:15 Patient is tachycardic likely related to doing crack cocaine today Medical Decision Making - Medical Decision Making 47 male the ER bleeding from glands her urethra, patient without significant bleeding and infection here in the ER. Ultrasound is negative URINE IS NEGATIVE , NO BLOOD IN URINE. PATIENT TO BE DISCHARGED HOME - Lab Data Lab Results 01/24/18 Range/Units 16:37 Urine Color Yellow Urine Appearance Clear (Clear) Urine pH 6.0 (5.0-8.0) Ur Specific [place] 1.016 (1.001-1.035) Urine Protein 1+ H (Negative) Urine Glucose (UA) Negative (Negative) Urine Ketones Negative (Negative) Urine Blood Moderate H (Negative) Urine Nitrite Negative (Negative) Urine Bilirubin Negative (Negative) Urine Urobilinogen <2.0 (<2.0) mg/dL Ur Leukocyte Esterase Negative (Negative) Urine RBC 1 (0-5) /hpf Urine WBC 2 (0-5) /hpf Hyaline Casts 9 H (0-2) /lpf Urine Mucus Occasional H (None) /hpf - Radiology Data Radiology results: report reviewed (Ultrasound scrotum was negative), image reviewed Disposition Clinical Impression: Hematuria Narrative: Bleeding From Urethra during Sex Disposition: HOME SELF-CARE Condition: Good Instructions: Hematuria (ED), Nonspecific Urethritis in Men (ED) Referrals: None,Stated [Primary Care Provider] - 1-2 days
[2018-01-27 15:45] LABS: C. trachomatis,PCR Negative (Neg,Equiv); Chlamydia trachomatis Source Urine; N. gonorrhoeae,PCR Negative (Neg,Equiv); Neisseria Source Urine
== END 2018-01-24 18:30 | disposition home or self-care (01) ==
LOC: EC 15:42
DX: N36.8 Other specified disorders of urethra (principal); F17.200 Nicotine dependence, unspecified, uncomplicated
CPT/HCPCS: 76870; 81001; 87086; 87491; 87591; 93975; 99284

== ENCOUNTER 2018-01-25 17:39 | Inpatient (IN) | payer MEDICAID, OTHER ==
--- NOTE | 2018-01-25 18:16 | ED ---
General Adult HPI - General Chief complaint: Psychiatric Symptoms Stated complaint: withdrawals Time Seen by Provider: 01/25/18 17:56 Source: patient, RN notes reviewed Mode of arrival: ambulatory Limitations: no limitations - History of Present Illness Initial comments: 47-year-old male presents to the emergency department with a chief complaint of suicidal thoughts. He states that he is having questions about why he is here. He is a drug addict as well as alcoholic. He states that he has had thoughts of suicide. He states that he just needs help today. He denies any attempt to hurt himself today. He denies any health concerns at this time. Patient denies any recent fever, chills, shortness of breath, chest pain, back pain, abdominal pain, nausea vomiting, numbness or tingling, dysuria or hematuria, constipation or diarrhea, headaches or visual changes, or any other current symptoms. - Related Data Home Medications Medication Instructions Recorded Confirmed Ibuprofen [Motrin] 800 mg PO TID PRN 01/24/18 01/25/18 Trazodone Unknown Dose 1 tab PO HS 01/25/18 01/25/18 busPIRone HCl [Buspar] 10 mg PO BID 01/25/18 01/25/18 Allergies Allergy/AdvReac Type Severity Reaction Status Date / Time Fish Containing Products AdvReac Vomiting Verified 01/25/18 18:17 [Fish] Review of Systems ROS Statement: Those systems with pertinent positive or pertinent negative responses have been documented in the HPI. ROS Other: All systems not noted in ROS Statement are negative. Past Medical History Past Medical History: Diabetes Mellitus Additional Past Medical History / Comment(s): DIET CONTROLLED DIABETIC History of Any Multi-Drug Resistant Organisms: None Reported Past Surgical History: Hernia Repair, Orthopedic Surgery Additional Past Surgical History / Comment(s): left knee surgery, skin grafts Past Anesthesia/Blood Transfusion Reactions: No Reported Reaction Past Psychological History: Depression Smoking Status: Current every day smoker Past Alcohol Use History: Daily Past Drug Use History: Cocaine - Past Family History Sister(s) Family Medical History: Cancer Additional Family Medical History / Comment(s): BREAST General Exam Limitations: no limitations General appearance: alert, in no apparent distress ENT exam: Present: normal exam, mucous membranes moist Neck exam: Present: normal inspection. Absent: tenderness, meningismus, lymphadenopathy Respiratory exam: Present: normal lung sounds bilaterally. Absent: respiratory distress, wheezes, rales, rhonchi, stridor Cardiovascular Exam: Present: regular rate, normal rhythm, normal heart sounds. Absent: systolic murmur, diastolic murmur, rubs, gallop, clicks Neurological exam: Present: alert, oriented X3 Psychiatric exam: Present: suicidal ideation. Absent: homicidal ideation Skin exam: Present: warm, dry, intact, normal color. Absent: rash Course Vital Signs 01/25/18 17:49 Temperature 96.7 F L Pulse Rate 86 Respiratory 20 Rate Blood Pressure 145/95 O2 Sat by Pulse 100 Oximetry - Reevaluation(s) Reevaluation #1: 01/25/18 19:55 This case will be signed out to Dr. Aragon. Medical Decision Making - Medical Decision Making 47-year-old male presents with chief complaint of suicidal ideation. At this time patient does not appear to be suffering from any acute medical emergency. At this time patient is cleared to be evaluated by psychiatry. - Lab Data Lab Results 01/25/18 Range/Units 18:47 Urine Opiates Screen Not Detected (NotDetected) Ur Oxycodone Screen Not Detected (NotDetected) Urine Methadone Screen Not Detected (NotDetected) Ur Propoxyphene Screen Not Detected (NotDetected) Ur Barbiturates Screen Not Detected (NotDetected) U Tricyclic Antidepress Not Detected (NotDetected) Ur Phencyclidine Scrn Not Detected (NotDetected) Ur Amphetamines Screen Not Detected (NotDetected) U Methamphetamines Scrn Not Detected (NotDetected) U Benzodiazepines Scrn Not Detected (NotDetected) Urine Cocaine Screen Detected H (NotDetected) U Marijuana (THC) Screen Not Detected (NotDetected) Disposition Referrals: None,Stated [Primary Care Provider] - 1-2 days
[2018-01-25 19:12] LABS: Amphetamine Screen,Urine Not Detected (NotDetected); Barbiturate Screen,Urine Not Detected (NotDetected); Benzodiazepines Screen,Urine Not Detected (NotDetected); Cocaine Screen,Urine Detected (NotDetected); Methadone Screen, Urine Not Detected (NotDetected); Opiate Screen,Urine Not Detected (NotDetected); Oxycodone Screen, Urine Not Detected (NotDetected); Phencyclidine Screen,Urine Not Detected (NotDetected); Tricyclic Antidepressant,Urine Not Detected (NotDetected); Urn Cannabinoid Scrn Not Detected (NotDetected)
[2018-01-25] MEDS ORDERED: busPIRone HCl 5 MG TAB PO STA (22:10)
[2018-01-25] MEDS ORDERED: IBUPROFEN 400 MG TAB PO STA (22:10)
[2018-01-25] MEDS ORDERED: NICOTINE 14MG/24HR PATCH TRANSDERM SCH (23:45)
[2018-01-25] MEDS ORDERED: TRAZODONE PO SCH (23:45)
[2018-01-26] MEDS ORDERED: MAG HYDROX/AL HYDROX/SIMETH 30 ML CUP PO PRN (00:01)
[2018-01-26] MEDS ORDERED: MAGNESIUM HYDROXIDE 2,400 MG/10 ML CUP PO PRN (00:01)
--- NOTE | 2018-01-26 00:09 | P.MDCNMH ---
History of Present Illness H&P Date: 01/26/18 Chief Complaint: Suicidal ideations 47-year-old male presents to the emergency department with a chief complaint of suicidal thoughts. He has been suffering from worsening depression and anxiety over the last several months. He admitted to using cocaine on a regular basis. He has been using for about 7-8 years. He did attempt suicide in the past with medication overdose twice. This time he had plans to shoot himself but he did not have access to a gun. He has also been having some abdominal pain and acid reflux symptoms, he was tried on Pepcid and Prevacid in the past with success. He has mild nausea but no vomiting. No constipation or diarrhea. No fevers or chills. Review of Systems 12 point review of system was performed, negative except HPI Past Medical History Past Medical History: Diabetes Mellitus Additional Past Medical History / Comment(s): DIET CONTROLLED DIABETIC History of Any Multi-Drug Resistant Organisms: None Reported Past Surgical History: Hernia Repair, Orthopedic Surgery Additional Past Surgical History / Comment(s): left knee surgery, skin grafts Past Anesthesia/Blood Transfusion Reactions: No Reported Reaction Past Psychological History: Depression Smoking Status: Current every day smoker Past Alcohol Use History: Daily Past Drug Use History: Cocaine - Past Family History Sister(s) Family Medical History: Cancer Additional Family Medical History / Comment(s): BREAST Medications and Allergies Home Medications Medication Instructions Recorded Confirmed Type Ibuprofen [Motrin] 800 mg PO TID PRN 01/24/18 01/25/18 History Trazodone Unknown Dose 1 tab PO HS 01/25/18 01/25/18 History busPIRone HCl [Buspar] 10 mg PO BID 01/25/18 01/25/18 History Allergies Allergy/AdvReac Type Severity Reaction Status Date / Time Fish Containing Products AdvReac Vomiting Verified 01/25/18 18:17 [Fish] Physical Exam Vitals: Vital Signs Temp Pulse Resp BP Pulse Ox 01/25/18 23:08 99.8 F H 87 15 107/64 97 01/25/18 17:49 96.7 F L 86 20 145/95 100 Intake and Output 01/25/18 01/25/18 01/26/18 14:59 22:59 06:59 Other: Weight 99.79 kg Constitutional: No acute distress, conversant, pleasant Eyes:Anicteric sclerae, moist conjunctiva, no lid-lag, PERRLA, ENMT: Oropharynx clear, no erythema, exudates Neck: Supple, FROM, no masses, or JVD, No carotid bruits, No thyromegaly Lungs: Clear to auscultation, Clear to percussion, Normal respiratory effort, no accessory muscle use Cardiovascular: Heart regular in rate and rhythm, No murmurs, gallops, or rubs, No peripheral edema Abdominal: Soft, epigastric tenderness , no guarding, rebound or rigidity, Normoactive bowel sounds, No hepatomegaly, No splenomegaly, No palpable mass Skin: Normal temperature, tone, texture, turgor, no induration, No subcutaneous nodules, No rash, lesions, No ulcers Extremities: Left toenail deformity and scaling. The greater toenail is ingrowing into the second toe causing an ulcer. Left leg scar below the knee. No digital cyanosis, No clubbing, Pedal pulses intact and symmetrical, Radial pulses intact and symmetrical, No calf tenderness Psychiatric: Alert and oriented to person, place and time, appropriate affect, intact judgement Neuro: Muscles Strength 5/5 in all 4 extremities, Sensation to light touch grossly present throughout, Cranial nerves II-XII grossly intact, no focal sensory deficits Cranial Nerve Examination - Cranial Nerves Cranial Nerve II- Optic: Intact Cranial Nerve III- Oculomotor: Intact Cranial Nerve IV- Trochlear: Intact Cranial Nerve V- Trigeminal: Intact Cranial Nerve - Abducens: Intact Cranial Nerve VII- Facial: Intact Cranial Nerve VIII- Auditory: Intact Cranial Nerve IX- Glossopharyngeal: Intact Cranial Nerve X- Vagus: Intact Cranial Nerve XI- Accessory: Intact Cranial Nerve XII- Hypoglossal: Intact Results Labs: Abnormal Lab Results - Last 24 Hours (Table) 01/25/18 Range/Units 18:47 Urine Cocaine Screen Detected H (NotDetected) Assessment and Plan Plan: #1 Suicidal ideation/depression Management per psychiatry Check CBC, CMP, mag and phos, TSH, lipid profile #2 Smoking Counseled to quit Nicotine patch #3 Tinea unguium: Start terbinafine daily #4 Diabetes mellitus type 2 diet controlled Check HbA1c #5 Drug use Counseled to quit #6 Dyspepsia/GERD Start Protonix 40 mg by mouth twice a day
[2018-01-26] MEDS: TERBINAFINE 250 MG TAB PO SCH ×2 (00:18→11:27)
[2018-01-26] MEDS: PANTOPRAZOLE 40 MG TABLET PO SCH ×3 (00:18→19:16)
[2018-01-26] MEDS: LORazepam 1 MG TAB PO PRN (00:41)
[2018-01-26 01:22] VITALS: BMI 27.4
[2018-01-26 06:31] LABS: Glucose,Whole Blood 104 mg/dL (75-99)
[2018-01-26] MEDS: INSULIN ASPART 100 UNIT/ML 1 ML 10 ML VIAL SQ SCH ×4 (07:42→21:47)
[2018-01-26 08:49] LABS: Basophils % (A) 1 %; Eosinophils # (A) 0.3 k/uL (0-0.7); Eosinophils % (A) 5 %; HCT 45.1 % (39.0-53.0); HGB 14.5 gm/dL (13.0-17.5); Hypochromasia Slight; Lymphocytes # (A) 1.9 k/uL (1.0-4.8); Lymphocytes % (A) 33 %; MCH 28.5 pg (25.0-35.0); MCHC 32.2 g/dL (31.0-37.0); MCV 88.5 fL (80.0-100.0); Mean Platelet Volume 7.5; Monocytes # (A) 0.6 k/uL (0-1.0); Monocytes % (A) 10 %; Neutrophils # (A) 2.9 k/uL (1.3-7.7); Neutrophils % (A) 49 %; Platelet Count 213 k/uL (150-450); RBC 5.09 m/uL (4.30-5.90); RDW 14.6 % (11.5-15.5); WBC 5.9 k/uL (3.8-10.6)
[2018-01-26 09:02] LABS: ALT 27 U/L (21-72); AST 27 U/L (17-59); Albumin 3.6 g/dL (3.5-5.0); Alkaline Phosphatase 76 U/L (38-126); Anion Gap 10 mmol/L; Blood Urea Nitrogen 15 mg/dL (9-20); Calcium 9.8 mg/dL (8.4-10.2); Carbon Dioxide 23 mmol/L (22-30); Chloride 110 mmol/L (98-107); Cholesterol 135 mg/dL (<200); Glucose 71 mg/dL (74-99); HDL Cholesterol 99 mg/dL (40-60); LDL Cholesterol,Calculated 27 mg/dL (0-99); Magnesium 1.8 mg/dL (1.6-2.3); Potassium 4.1 mmol/L (3.5-5.1); Sodium 143 mmol/L (137-145); Total Bilirubin 0.5 mg/dL (0.2-1.3); Total Protein 6.7 g/dL (6.3-8.2); Triglycerides 47 mg/dL (<150)
[2018-01-26] MEDS: busPIRone HCl 10 MG TAB PO SCH ×2 (11:29→20:24)
[2018-01-26] MEDS: NICOTINE 14MG/24HR PATCH TRANSDERM SCH (11:30)
[2018-01-26] MEDS: ACETAMINOPHEN TAB 325 MG TAB PO PRN (11:32)
[2018-01-26 18:19] LABS: Glucose,Whole Blood 100 mg/dL (75-99)
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
[2018-01-26 19:50] LABS: Hemoglobin A1C 5.2 % (4.0-6.0)
[2018-01-26 20:29] LABS: Glucose,Whole Blood 105 mg/dL (75-99)
[2018-01-26] MEDS ORDERED: traZODone HCL 50 MG TAB PO SCH (21:00)
[2018-01-26] MEDS ORDERED: risperiDONE 0.5 MG TAB PO SCH (21:00)
[2018-01-27] MEDS: INSULIN ASPART 100 UNIT/ML 1 ML 10 ML VIAL SQ SCH ×4 (08:03→20:21)
[2018-01-27] MEDS: busPIRone HCl 10 MG TAB PO SCH (08:39)
[2018-01-27] MEDS: PANTOPRAZOLE 40 MG TABLET PO SCH ×2 (08:39→17:55)
[2018-01-27] MEDS: ACETAMINOPHEN TAB 325 MG TAB PO PRN (08:39)
[2018-01-27] MEDS: NICOTINE 14MG/24HR PATCH TRANSDERM SCH (08:39)
[2018-01-27] MEDS: TERBINAFINE 250 MG TAB PO SCH (08:40)
[2018-01-27] MEDS ORDERED: SERTRALINE 25 MG TAB PO SCH (09:00)
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
[2018-01-27 12:14] LABS: Glucose,Whole Blood 126 mg/dL (75-99)
[2018-01-27 14:41] LABS: Appearance,Urine Clear (Clear); Bilirubin,Urine Negative (Negative); Blood,Urine Negative (Negative); Color,Urine Yellow; Glucose,Urine (UA) Negative (Negative); Ketones,Urine Negative (Negative); Leukocyte Esterase,Urine Negative (Negative); Nitrite,Urine Negative (Negative); Protein,Urine Trace (Negative); Specific Gravity,Urine 1.025 (1.001-1.035)
[2018-01-27 15:11] LABS: Amphetamine Screen,Urine Not Detected (NotDetected); Barbiturate Screen,Urine Not Detected (NotDetected); Benzodiazepines Screen,Urine Detected (NotDetected); Cocaine Screen,Urine Detected (NotDetected); Methadone Screen, Urine Not Detected (NotDetected); Opiate Screen,Urine Not Detected (NotDetected); Oxycodone Screen, Urine Not Detected (NotDetected); Phencyclidine Screen,Urine Not Detected (NotDetected); Tricyclic Antidepressant,Urine Not Detected (NotDetected); Urn Cannabinoid Scrn Detected (NotDetected)
[2018-01-27 15:26] LABS: Appearance,Urine Clear (Clear); Bilirubin,Urine Negative (Negative); Blood,Urine Negative (Negative); Color,Urine Yellow; Glucose,Urine (UA) Negative (Negative); Ketones,Urine Negative (Negative); Leukocyte Esterase,Urine Negative (Negative); Nitrite,Urine Negative (Negative); Protein,Urine Trace (Negative); Specific Gravity,Urine 1.026 (1.001-1.035)
[2018-01-27 17:40] LABS: Glucose,Whole Blood 104 mg/dL (75-99)
[2018-01-27 20:28] LABS: Glucose,Whole Blood 123 mg/dL (75-99)
[2018-01-27] MEDS ORDERED: QUEtiapine 100 MG TAB PO SCH (21:00)
[2018-01-28] MEDS: INSULIN ASPART 100 UNIT/ML 1 ML 10 ML VIAL SQ SCH ×2 (07:58→14:03)
[2018-01-28] MEDS: TERBINAFINE 250 MG TAB PO SCH (08:00)
[2018-01-28] MEDS: PANTOPRAZOLE 40 MG TABLET PO SCH ×2 (08:00→16:31)
[2018-01-28] MEDS: NICOTINE 14MG/24HR PATCH TRANSDERM SCH (08:01)
--- NOTE | 2018-01-28 12:39 | P.PN ---
Progress Note - Text Progress Note Date: 01/28/18 Patient was seen for routine follow-up examination. He said he slept too much on Seroquel 100 mg at bedtime and did not wake up until 11:00 this morning and missed his breakfast and he thinks he needs to go back to [facility]. He was counseled and he agreed to lower the dose to 50 mg at bedtime. He said he plans on going to the rehab and then go to [facility] stay in three -quarter house there for up to 6 months and then probably stay with his second ex-. He does not have any other complaints or concerns. This is a tall ambulatory black male with good hygiene. He is polite and cooperative. He does not show any psychomotor agitation or retardation. His speech is spontaneous relevant and goal-directed. His mood is euthymic to mildly dysphoric and affect is appropriate. He continues to report that he gets suicidal thoughts on and off. He denies homicidal thoughts. He denies hallucinations and delusional thinking. He is well oriented. Plan: Decrease Seroquel to 50 mg at bedtime, continue groups and other therapies.
[2018-01-28] MEDS: IBUPROFEN 800 MG TAB PO PRN (14:38)
[2018-01-28] MEDS ORDERED: QUEtiapine 50 MG TAB PO SCH (21:00)
[2018-01-29] MEDS: PANTOPRAZOLE 40 MG TABLET PO SCH ×2 (08:33→16:38)
[2018-01-29] MEDS: NICOTINE 14MG/24HR PATCH TRANSDERM SCH (08:33)
[2018-01-29] MEDS: TERBINAFINE 250 MG TAB PO SCH (08:34)
[2018-01-29] MEDS: IBUPROFEN 800 MG TAB PO PRN (08:36)
[2018-01-29] MEDS: LORazepam 1 MG TAB PO PRN ×2 (08:37→16:38)
--- NOTE | 2018-01-29 10:41 | P.PN ---
Progress Note - Text Progress Note Date: 01/29/18 Patient was seen for follow-up examination. He said he did not sleep well last night. He got a roommate in the middle of the night who fell asleep right away and was snoring very loud and it did not help him to sleep at all. He said he may have to go back to 100 mg of Seroquel. But when he took 100 mg he did not wake up until 11:00 in the morning. So it was agreed to try him on 75 mg at night. He does not have any other concerns or complaints. This is a black ambulatory male with good hygiene. He is polite and cooperative. He does not show any psychomotor agitation or retardation. His speech is spontaneous relevant and goal-directed. His mood is mildly anxious to euthymic and affect is appropriate. He continues to deny hallucinations, delusional thinking, suicide and homicide thoughts. He is well oriented with good memory concentration etc. Plan: Increase Seroquel to 75 mg at bedtime, continue groups and wait for the rehab to accept him.
[2018-01-29] MEDS: QUEtiapine 25 MG TAB PO SCH (20:23)
[2018-01-30] MEDS: PANTOPRAZOLE 40 MG TABLET PO SCH ×2 (08:33→15:02)
[2018-01-30] MEDS: NICOTINE 14MG/24HR PATCH TRANSDERM SCH (08:33)
[2018-01-30] MEDS: TERBINAFINE 250 MG TAB PO SCH (08:33)
[2018-01-30] MEDS: IBUPROFEN 800 MG TAB PO PRN (08:34)
[2018-01-30] MEDS: LORazepam 1 MG TAB PO PRN ×3 (08:34→20:01)
--- NOTE | 2018-01-30 11:20 | P.PN ---
Progress Note - Text Progress Note Date: 01/30/18 Patient said he slept well last night and had his thumbs up this morning. When I called him he was sleeping and told me now that he is having nightmares about him falling down about his drugs or alcohol in the past etc. He had never mentioned this before. He also feels he is not ready to leave the hospital yet. His rehab won't be ready until of this month. He was advised that he may have to go to the prison if his insurance denies his continued stay. He wants to know little more about the prison. He was asked to talk to the social services aide. He said he would. This is a black ambulatory male with adequate hygiene. He continues to have for colder and some body odor today. He does not show any psychomotor agitation or retardation. His speech is spontaneous relevant and goal- directed. His mood is euthymic and affect is appropriate. He denies hallucinations, delusional thinking, suicidal thoughts and homicidal thoughts. His plans are to go to rehab and then go to [place] and hopefully to get back with his second ex-. He is well oriented with adequate memory concentration general knowledge etc. Plan: Continue Seroquel 75 mg a day, groups and other therapies.
[2018-01-30] MEDS: QUEtiapine 25 MG TAB PO SCH (20:02)
[2018-01-31] MEDS: IBUPROFEN 800 MG TAB PO PRN ×2 (03:52→14:20)
[2018-01-31 06:30] VITALS: BP 128/74; PULSE 101; RESP 18; TEMP 98.9
[2018-01-31] MEDS: NICOTINE 14MG/24HR PATCH TRANSDERM SCH (09:42)
[2018-01-31] MEDS: PANTOPRAZOLE 40 MG TABLET PO SCH (09:42)
[2018-01-31] MEDS: LORazepam 1 MG TAB PO PRN (09:43)
[2018-01-31] MEDS: TERBINAFINE 250 MG TAB PO SCH (09:44)
--- NOTE | 2018-01-31 12:04 | P.DS ---
Providers Date of admission: 01/25/18 23:01 Expected date of discharge: 01/31/18 Attending physician: Johan Mittal Consults: 01/25/18 23:35 Consult Physician Routine Consulting Provider: Kristine Physician Consult Reason/Comments: h&p and medical follow up Do you want consulting provider notified?: Already Contacted Primary care physician: Stated None Hospital Course: Patient had psychiatric examination by the weekend psychiatrist on 01/26/2018, physical examination and psychosocial examination. He was continued on his home medications of trazodone and BuSpar and started on risperidone 0.5 mg for paranoia and visual hallucinations and Zoloft 25 mg a day for depression by the weekend psychiatrist. After I saw him on 01-27-18 his diagnosis and treatment plan were revised, BuSpar trazodone Zoloft risperidone where discontinued since they were all polypharmacy and redundant and started on Seroquel 100 mg 4 reported mood disorder insomnia anxiety etc. Next day he said he did not wake up until 11:00 in the morning and so it was agreed to decrease it to 50 mg at bedtime per his suggestion. Next day he said that was not enough and he did not sleep well. So Seroquel was increased to 75 mg at bedtime. With this dose he slept well, his anxiety and mood became stable and he felt comfortable. He also made good plans for the future. He was accepted to the rehab starting tomorrow and so it was agreed to discharge him today so that he can be taken to the [facility] from were he will be transported to the rehab tomorrow. Condition on discharge: This is a black ambulatory male with adequate hygiene. He still has some foot order from tinea infection. He does not show any psychomotor agitation or retardation. His speech is spontaneous relevant and goal-directed. His mood is euthymic and affect is appropriate. He denies hallucinations delusional thinking suicide and homicide thoughts. His cognitive functions are adequate. His insight and judgment have improved. Diagnosis on discharge: Adjustment disorder unspecified F 43.20. Cocaine use disorder severe F 14.20. Alcohol use disorder severe F 10.20. 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 ALLERGY to fish. Tenia pedis. GERD. Patient was advised and agreed to take his medications as prescribed, not to drink alcohol or use drugs, not to drive or operate missionary if he feels sleepy, to learn better coping skills through therapy, to call his psychiatrist/ therapist if he gets suicidal thoughts and if he cannot get hold of them to go to nearest ER. Plan - Discharge Summary Discharge Rx Participant: No New Discharge Prescriptions: New Pantoprazole [Protonix] 40 mg PO AC-BID 30 Days #30 tablet. QUEtiapine [SEROquel] 75 mg PO HS 30 Days #90 tab Terbinafine [LamISIL] 250 mg PO DAILY 28 Days #28 tab Continue Ibuprofen [Motrin] 800 mg PO TID PRN PRN Reason: Pain Discontinued busPIRone HCl [Buspar] 10 mg PO BID Trazodone Unknown Dose 1 tab PO HS Discharge Medication List Ibuprofen [Motrin] 800 mg PO TID PRN 01/24/18 [History] Pantoprazole [Protonix] 40 mg PO AC-BID 30 Days #30 tablet. 01/31/18 [Rx] QUEtiapine [SEROquel] 75 mg PO HS 30 Days #90 tab 01/31/18 [Rx] Terbinafine [LamISIL] 250 mg PO DAILY 28 Days #28 tab 01/31/18 [Rx] Follow up Appointment(s)/Referral(s): [facility] [Outside] - 02/01/18 11:00 am () None,Stated [Primary Care Provider] - 1-2 days
[2018-01-31 15:05] LABS: Glucose,Whole Blood 128 mg/dL (75-99)
== END 2018-01-31 15:46 | disposition home or self-care (01) | DRG 881 ==
LOC: EC 17:39 → 3MHU 23:01
PROVIDERS: ADMIT Psychiatry & Neurology Psychiatry; ATTEND Psychiatry & Neurology Psychiatry
DX: F32.9 Major depressive disorder, single episode, unspecified (principal); R45.851 Suicidal ideations; F25.1 Schizoaffective disorder, depressive type; E11.9 Type 2 diabetes mellitus without complications; B35.3 Tinea pedis; B35.1 Tinea unguium; F10.10 Alcohol abuse, uncomplicated; F14.10 Cocaine abuse, uncomplicated; F17.200 Nicotine dependence, unspecified, uncomplicated; F60.89 Other specific personality disorders; K21.9 Gastro-esophageal reflux disease without esophagitis; R10.9 Unspecified abdominal pain; F43.22 Adjustment disorder with anxiety; Z62.810 Personal history of physical and sexual abuse in childhood; Z62.811 Personal history of psychological abuse in childhood; Z91.018 Allergy to other foods; Z98.890 Other specified postprocedural states; Z59.0 Homelessness; Z91.5 Personal history of self-harm; Z71.89 Other specified counseling; Z79.899 Other long term (current) drug therapy; Z71.6 Tobacco abuse counseling; Z71.51 Drug abuse counseling and surveillance of drug abuser
CPT/HCPCS: 80053; 80061; 80306; 81003; 82075; 83036; 83735; 84443; 85025; 99285